=== PATIENT | male | born 1990 | race American Indian/Alaskan Native ===

== ENCOUNTER 2017-01-13 15:48 | Emergency (ER) | payer MEDICARE, MEDICAID ==
[2017-01-13 15:48] VITALS: BMI 41.1
[2017-01-13 16:13] VITALS: BP 122/74; PULSE 63; RESP 15; TEMP 98; O2SAT 97
--- NOTE | 2017-01-13 16:47 | RAD ---
PROCEDURE: Radiographs of the Left Shoulder HISTORY: pain COMPARISON: None available. FINDINGS: BONES: No acute displaced fracture. The distal clavicle and underlying ribs appear intact. JOINTS: No acute dislocation. SOFT TISSUES: Soft tissues appear unremarkable. No evidence of radiopaque foreign body. IMPRESSION: No acute displaced fracture or dislocation evident. If symptoms persist or if there is continued clinical concern, x-ray follow-up in 7-10 days should be considered.
--- NOTE | 2017-01-13 17:13 | C.PDOC ---
History Of Present Illness The patient, a 26 y/o male, presents to the ED for evaluation of left shoulder pain which radiates down his left arm for a couple days. Patient notes a tingling sensation to his left arm and states it is hard to move the arm up and down. 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 Patient denies fever, chills, neck pain, back pain, upper/lower extremity numbness/weakness, or direct trauma/injury to the affected area. Time Seen by Provider: 01/13/17 16:28 Chief Complaint (Nursing): Upper Extremity Problem/Injury History Per: Patient History/Exam Limitations: no limitations Onset/Duration Of Symptoms: Days Current Symptoms Are (Timing): Still Present Quality: "Pain" Exacerbating Factor(s): Movement Additional History Per: Patient Past Medical History Reviewed: Historical Data, Nursing Documentation, Vital Signs Vital Signs: Last Vital Signs Temp 98.0 F 01/13/17 16:12 Pulse 63 01/13/17 16:12 Resp 15 01/13/17 16:12 BP 122/74 01/13/17 16:12 Pulse Ox 97 01/13/17 22:00 - Medical History PMH: No Chronic Diseases Denies: Back Problems, Chronic Kidney Disease Surgical History: No Surg Hx - [facility] Procedures ASPIRATION SKIN & SUBQ (03/13/13) DPT ADMINISTRATION (05/16/15) OTHER SKIN & SUBQ I D (05/10/13) Family History: States: Unknown Family Hx - Social History Hx Tobacco Use: Yes Hx Alcohol Use: Yes Hx Substance Use: No - Immunization History Hx Tetanus Toxoid Vaccination: Yes Hx Influenza Vaccination: Yes Hx Pneumococcal Vaccination: Yes Review Of Systems Except As Marked, All Systems Reviewed And Found Negative. Musculoskeletal: Positive for: Shoulder Pain (left ), Arm Pain (left ). Negative for: Neck Pain, Back Pain Neurological: Positive for: Other (+tingling sensation of left arm ). Negative for: Weakness, Numbness Physical Exam - Physical Exam Appears: Non-toxic, No Acute Distress Skin: Normal Color, Warm, Dry, No Other (no erythema to left shoulder ) Head: Atraumatic, Normacephalic Eye(s): bilateral: Normal Inspection Oral Mucosa: Moist Neck: Normal ROM, No Midline Cervical Tenderness, Supple Chest: Symmetrical, No Deformity, No Tenderness Cardiovascular: Rhythm Regular, No Murmur Respiratory: Normal Breath Sounds, No Rales, No Rhonchi, No Wheezing Back: Normal Inspection, No Vertebral Tenderness, No Paraspinal Tenderness Extremity: No Normal ROM (decreased abduction of left upper extremity secondary to pain ), Tenderness (diffuse throughout left shoulder on palpation ), Capillary Refill (less than 2 seconds ), No Deformity, No Swelling Pulses: Left Radial: Normal Neurological/Psych: Oriented x3, Normal Speech, Normal Cognition Gait: Steady ED Course And Treatment O2 Sat by Pulse Oximetry: 97 (on RA) Pulse Ox Interpretation: Normal - Other Rad L shoulder XR X-Ray: Interpreted by Me, Viewed By Me, Read By Radiologist Interpretation: On reassessment, patient is resting comfortably, showing no signs of distress, and is stable for discharge. Patient is advised to follow up with PMD within 1-2 days for further evaluation. Progress Note: Left shoulder XR ordered, results are unremarkable. On reassessment, patient is resting comfortably, showing no signs of distress, and is stable for discharge. Patient is advised to follow up with PMD within 1-2 days for further evaluation. Disposition - Disposition Referrals: Barbara Hirsch MD [Staff Provider] - Disposition: HOME/ ROUTINE Disposition Time: 17:12 Condition: STABLE Additional Instructions: Follow up with Orthopedist within 1-2 days. Return to ED if feel worse. 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 - Scribe Statement The provider has reviewed the documentation as recorded by the Scribe (Shey Vera) All medical record entries made by the Scribe were at my direction and personally dictated by me. I have reviewed the chart and agree that the record accurately reflects my personal performance of the history, physical exam, medical decision making, and the department course for this patient. I have also personally directed, reviewed, and agree with the discharge instructions and disposition.
== END 2017-01-13 17:16 | disposition home or self-care (01) ==
LOC: C.ER 15:48
DX: M25.512 Pain in left shoulder (principal)

== ENCOUNTER 2017-12-06 18:07 | Emergency (ER) | payer MEDICARE, MEDICAID ==
[2017-12-06 18:07] VITALS: BMI 41.1
[2017-12-06 18:13] VITALS: BP 130/78; PULSE 56; RESP 18; TEMP 97.3; O2SAT 95
--- NOTE | 2017-12-06 19:46 | C.PDOC ---
History Of Present Illness 27 y/o male presents to the ER for evaluation of a painful mass to the left axilla which has been present for the past 3 days. Patient states that he is using a warm compress with no relief. Patient states that he has a history of having same abscesses several times before. Patient denies having fever and chills. Time Seen by Provider: 12/06/17 19:31 Chief Complaint (Nursing): Abnormal Skin Integrity History Per: Patient History/Exam Limitations: no limitations Onset/Duration Of Symptoms: Days Current Symptoms Are (Timing): Still Present Severity: Moderate Past Medical History Reviewed: Historical Data, Nursing Documentation, Vital Signs Vital Signs: Last Vital Signs Temp 97.3 F L 12/06/17 18:12 Pulse 56 L 12/06/17 18:12 Resp 18 12/06/17 18:12 BP 130/78 12/06/17 18:12 Pulse Ox 95 12/06/17 21:02 - Medical History PMH: Denies: Back Problems, Chronic Kidney Disease Other Surgeries: Hx of surgeries - [facility] Procedures ASPIRATION SKIN & SUBQ (03/13/13) DPT ADMINISTRATION (05/16/15) OTHER SKIN & SUBQ I D (05/10/13) Family History: States: No Known Family Hx - Social History Hx Tobacco Use: Yes Hx Alcohol Use: Yes Hx Substance Use: No - Immunization History Hx Tetanus Toxoid Vaccination: Yes Hx Influenza Vaccination: Yes Hx Pneumococcal Vaccination: Yes Review Of Systems Except As Marked, All Systems Reviewed And Found Negative. Constitutional: Negative for: Fever, Chills Skin: Positive for: Other (mass to left axilla) Physical Exam - Physical Exam Appears: Non-toxic, No Acute Distress Skin: Normal Color, Warm, Other (3x4 cm tender, indurated, non-fluctuant mass to left axilla, no erythema) Head: Atraumatic, Normacephalic Eye(s): bilateral: Normal Inspection Nose: Normal Oral Mucosa: Moist Neck: Supple Chest: Symmetrical Cardiovascular: Rhythm Regular Respiratory: Normal Breath Sounds, No Rales, No Rhonchi, No Wheezing Neurological/Psych: Oriented x3, Normal Speech, Normal Motor, Normal Sensation ED Course And Treatment O2 Sat by Pulse Oximetry: 95 (RA) Pulse Ox Interpretation: Normal Progress Note: Pt offered needle aspiration or I&D. Pt refused. Pt is requesting PO abx and will continue warm compress for spontaneous drainage. He has been given prescrption for Motrin and told to follow up for wound check in ER in 2 days. Disposition Counseled Patient/Family Regarding: Diagnosis, Need For Followup, Rx Given - Disposition Referrals: Momo Kirkland MD [Staff Provider] - Disposition: HOME/ ROUTINE Disposition Time: 19:43 Condition: STABLE Additional Instructions: Take meds as directed Apply warm compress to area Wound check in 2 days in ED Make appointment with general surgeon Return to ER if worse Prescriptions: Cephalexin [cephalexin] 1,000 mg PO BID #20 cap Ibuprofen [Motrin Tab] 800 mg PO QID #24 tab Sulfamethoxazole/Trimethoprim [Bactrim DS 800 mg-160 mg] 1 tab PO BID #14 tab Instructions: Skin Abscess Forms: [employer] (Tristanian) - Clinical Impression Clinical Impression: Abscess of axilla, left - PA / 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 - Scribe Statement The provider has reviewed the documentation as recorded by the Lu Kelly Provider Attestation All medical record entries made by the Lu were at my direction and personally dictated by me. I have reviewed the chart and agree that the record accurately reflects my personal performance of the history, physical exam, medical decision making, and the department course for this patient. I have also personally directed, reviewed, and agree with the discharge instructions and disposition.
== END 2017-12-06 20:17 | disposition home or self-care (01) ==
LOC: C.ER 18:07
DX: L02.412 Cutaneous abscess of left axilla (principal)